=== PATIENT | male | born 1945 | race Caucasian/White ===

== ENCOUNTER 2019-03-22 08:36 | Day surgery (SDC) | payer OTHER ==
[2019-03-22 09:40] VITALS: TEMP 98.2; BMI 28.8
[2019-03-22 11:52] VITALS: BP 112/52; PULSE 64
--- NOTE | 2019-03-23 16:18 | PATH ---
Surgical Pathology Report Patient Name: [place] BEDOYA [facility]. Rec. #: [id number] /Age/Gender: 1945 (Age: 74) / M Account: [id number] Location: [facility]-ENDOSCOPY Taken: 03/22/2019 Received: 03/22/2019 Reported: 03/23/2019 Physicians: Marisabel Mcnamara M.D. Specimen(s) Received A: PROXIMAL TRANSVERSE COLON POLYPS B: CECUM POLYPS Clinical History Colon cancer screening Postoperative diagnosis: Cecal polyps, proximal transverse colon polyps, diverticulosis Final Diagnosis A. PROXIMAL TRANSVERSE COLON, POLYPS, POLYPECTOMY: TUBULAR ADENOMA(S). B. CECUM, POLYP, POLYPECTOMY: TUBULAR ADENOMA(S). Electronically Signed Tavia Jenkins M.D. Gross Description A. Received in formalin, labeled "biopsy proximal transverse colon polyps" are 5 mccall, irregular portions of soft tissue ranging from 0.1-0.4 cm. in greatest dimension. The specimens are submitted in toto in one cassette. B. Received in formalin, labeled "polyps cecum" are 2 mccall, irregular portions of soft tissue measuring 0.4 and 0.6 cm. in greatest dimension. The specimens are submitted in toto in one cassette. 03/22/201903/22/2019
== END 2019-03-22 11:30 | disposition home or self-care (01) ==
LOC: JASU-ENDO 08:36
PROVIDERS: ATTEND Internal Medicine Gastroenterology
PROC: 0DBL8ZX Excision of Transverse Colon, Via Natural or Artificial Opening Endoscopic, Diagnostic (ICD-10-PCS; 2019-03-22)
PROC: 0DBH8ZX Excision of Cecum, Via Natural or Artificial Opening Endoscopic, Diagnostic (ICD-10-PCS; principal; 2019-03-22 09:30)
DX: Z12.11 Encounter for screening for malignant neoplasm of colon (principal); D12.0 Benign neoplasm of cecum; D12.3 Benign neoplasm of transverse colon; K57.30 Diverticulosis of large intestine without perforation or abscess without bleeding
CPT/HCPCS: 88305-TC

== ENCOUNTER 2022-06-24 11:22 | Emergency (ER) | payer OTHER ==
[2022-06-24 12:10] VITALS: BP 171/71; PULSE 117; RESP 18; TEMP 98.4; BMI 24.7
[2022-06-24 12:58] LABS: BASO % 0.2 % (0-2.0); HEMATOCRIT 46.2 % (35.4-49); HEMOGLOBIN 15.4 GM/dL (11.7-16.9); LYMPH % 11.7 % (8-40); MCH 27.5 pg (25.7-33.7); MCHC 33.3 g/dl (32.0-35.9); MEAN CELL VOLUME 82.5 fl (80-96); MEAN PLT VOLUME 9.1 fl (7.5-11.1); NEUT % 78.1 % (42.8-82.8); PLATELET COUNT 167 10^3/uL (134-434); RDW 15.5 % (11.9-15.9); WHITE BLOOD COUNT 9.3 K/mm3 (4.0-10.0)
[2022-06-24 13:10] LABS: ALBUMIN 3.2 g/dl (3.4-5.0); CALCIUM 8.6 mg/dL (8.5-10.1)
[2022-06-24 13:11] LABS: BLOOD UREA NITROGEN 7.2 mg/dL (7-18)
[2022-06-24 13:13] LABS: CREATININE 1.1 mg/dL (0.55-1.3)
[2022-06-24 13:15] LABS: BILIRUBIN,TOTAL 0.9 mg/dL (0.2-1); TOT PROT 6.7 g/dl (6.4-8.2)
== END 2022-06-24 15:26 | disposition home or self-care (01) ==
LOC: JER 11:22
DX: J09.X2 Influenza due to identified novel influenza A virus with other respiratory manifestations (principal)
CPT/HCPCS: 0241U-QW; 36415; 71046-TC-FY; 80053; 85025; 99283-25